=== PATIENT | female | born 1970 ===

== ENCOUNTER 2016-07-08 12:49 | Emergency (ER) | payer BC ==
[2016-07-08 11:50] LABS: BASOPHILS 0.3 %; BASOPHILS ABSOLUTE 0.02 10/3/uL (0.0-0.16); EOSINOPHILS 0.8 %; EOSINOPHILS ABSOLUTE 0.05 10/3/uL (0.0-0.53); HEMATOCRIT 42.6 % (36.0-48.0); HEMOGLOBIN 14.5 g/dL (12.0-16.0); LYMPHOCYTES 26.2 %; LYMPHOCYTES ABSOLUTE 1.58 10/3/uL (0.67-4.30); MEAN CORPUSCULAR HEMOGLOB 32.2 pg (26.0-34.0); MEAN CORPUSCULAR VOLUME 94.7 fL (80-100); MEAN PLATELET VOLUME 10.1 fL (9.2-13.0); MONOCYTES 3.8 %; MONOCYTES ABSOLUTE 0.23 10/3/uL (0.21-1.20); NEUTROPHILS 68.9 %; NEUTROPHILS ABSOLUTE 4.16 10/3/uL (2.02-8.40); PLATELET COUNT 323 10/3/uL (150-400); RBC DISTRIBUTION WIDTH 13.1 % (12.0-16.0)
[2016-07-08 11:51] LABS: MANUAL DIFF NO %
[2016-07-08 11:57] LABS: INTERNATIONAL NORMAL RATI 0.9 UNITS (-); PROTIME (NOT ORD) 12.4 SEC (12.0-14.5)
[2016-07-08 12:02] LABS: PARTIAL THROMBO TIME 26.7 SEC (22.5-37.2)
[2016-07-08 12:04] LABS: BUN (BLOOD UREA NITROGEN) 10 MG/DL (6-23); CHEST PAIN PROFILE TAT 0 Hrs 20 Mins; CHLORIDE, SERUM 110 MMOL/L (96-112); CO2 (CARBON DIOXIDE) 27 MMOL/L (24-34); CREATININE 0.86 MG/DL (0.55-1.02); GFR AFRICAN AMERICAN 93 ML/MIN (>=60); GFR NON AFRICAN AMERICAN 80 ML/MIN (>=60); GLUCOSE, SERUM 88 MG/DL (60-99); POTASSIUM, SERUM 3.6 MMOL/L (3.5-5.3); SODIUM, SERUM 144 MMOL/L (135-148); TROPONIN I <0.02 NG/ML (<0.05)
== END 2016-07-08 13:20 | disposition home or self-care (01) ==
LOC: ER 12:49
PROVIDERS: Emergency Medicine
DX: R07.9 Chest pain, unspecified (principal); R42 Dizziness and giddiness; Z88.5 Allergy status to narcotic agent
CPT/HCPCS: 71020; 80048; 83735; 84484; 85025; 85610; 85730; 93005; 99285